=== PATIENT | male | born 1985 | race Caucasian/White ===

== ENCOUNTER 2019-04-09 10:19 | Inpatient (IN) | payer SELFPAY ==
[~2019-04-09] VITALS: Ht 180.3 cm; Wt 76.7 kg
[2019-04-09] MEDS ORDERED: HYDR-2966 PO (10:32)
[2019-04-09] MEDS ORDERED: ESCI5TAB10 PO (10:32)
[2019-04-09] MEDS ORDERED: NS(*) 0.9% 1000 ML BAG 1,000 ML IV ONE (10:55)
[2019-04-09] MEDS ORDERED: ONDANSETRON 4 MG/2 ML VIAL IVP ONE (10:55)
--- NOTE | 2019-04-09 11:05 | ER Report ---
History and Physical Time Seen By MD: 10:35 Hx. of Stated Complaint: pt states is an alcoholic, awoke this am had a shot, then vomited blood. States has not been able to eat for a week, very fatigued as well. Recently put on lexapro and hctz very recently HPI/ROS CHIEF COMPLAINT: Alcoholism, vomiting blood, foot swelling HISTORY OF PRESENT ILLNESS: 34-year-old male reports that he has been drinking heavily for at least the past 6 months but has history of significant alcohol intake in the past. States he was able to cut out alcohol successfully in 2013, but has since returned to significant alcohol intake. Reports that he drinks 10- 12 IPAs per day. Patient states that finances have been a big stressor and has triggered increased drinking. He reports depression is being treated for this but denies suicidal ideations. He reports that he noted bilateral lower extremity swelling around the ankles over the past couple days and is also noted that he is extremely nauseous whenever he attempts to eat or drink fluids or beer which is limited appetite, and intake to primarily beer. He drank a shot this morning and soon after vomited 2. He is concerned because at the end of the second vomit he noted blood. He is continually mildly nauseous though has not vomited in the past 3 hours. He notes some abdominal discomfort. He also notes chest tightness. States this is been ongoing for one day and he has been short of breath on exertion and noted increased fatigue. When asked, he admits that he has noted some change in I and skin color. Pt admits to MJ, denies other drug use REVIEW OF SYSTEMS: Constitutional: No fever, no chills. Eyes: yellow discoloration ENT: No sore throat. Dry mouth Cardiovascular: above Respiratory: No cough, no shortness of breath. Gastrointestinal: above Genitourinary: No hematuria. Musculoskeletal: No back pain. Skin: poor healing of rock climbing injuries Neurological: No headache. Remainder of the 14 system rev: Yes Allergies: Coded Allergies: No Known Drug Allergies (Unverified , 04/09/19) Home Meds Reported Medications Hydrochlorothiazide (HYDROCHLOROTHIAZIDE) 25 Mg Tablet, 1 TAB PO QDAY, TAB 04/09/19 Escitalopram Oxalate (LEXAPRO) 5 Mg Tablet, 5 MG PO QDAY 04/09/19 Reviewed Nurses Notes: Yes Hx Substance Use Disorder: Yes (pot) Hx Alcohol Use: Yes (6 pack daily, can't go 8 hours without a drink) Constitutional Vital Sign - Last 24 Hours 04/09/19 04/09/19 04/09/19 04/09/19 10:24 10:24 10:30 10:31 Temp 98.8 Pulse 117 Resp 20 B/P (MAP) 146/106 146/106 (119) 143/107 (119) Pulse Ox 89 O2 Delivery Room Air O2 Flow Rate 1.5 04/09/19 04/09/19 04/09/19 04/09/19 10:49 11:00 11:19 11:30 Pulse 104 100 Resp 15 10 B/P (MAP) 143/99 (114) 135/93 (107) Pulse Ox 95 93 04/09/19 04/09/19 11:49 12:00 Pulse 100 Resp 13 B/P (MAP) 136/88 (104) Pulse Ox 91 Physical Exam General Appearance: The patient is alert, has no immediate need for airway protection and no signs of toxicity. [ ] Eyes: Pupils equal and round, jaundiced ENT, Mouth: Mucous membranes dry, no jaundice noted under tongue Respiratory: There are no retractions, lungs are clear to auscultation. Cardiovascular: Tachycardia, no murmurs[ ] Gastrointestinal: Mild epigastric tenderness, no fluid or masses Neurological: Alert, oriented, no focal deficits Skin: Warm and dry, mildly jaundiced Musculoskeletal: Extremities are nontender, nonswollen and have full range of motion. DIFFERENTIAL DIAGNOSIS: After history and physical exam differential diagnosis was considered for liver failure, cholecystitis, renal failure, sepsis, alcohol withdrawal, drug toxicity or withdrawal, or other emergent etiology. Medical Decision Making Data Points Result Diagram: 04/09/19 1013 04/09/19 1013 Laboratory Hematology Test 04/09/19 00:00 04/09/19 10:13 Magnesium Level 1.9 mg/dl (1.7-2.2) Red Blood Count 4.98 M/uL (4.00-5.60) Mean Corpuscular Volume 95.1 fL (80.0-96.0) Mean Corpuscular Hemoglobin 34.1 pg (26.0-33.0) Mean Corpuscular Hemoglobin Concent 35.9 g/dL (32.0-36.0) Red Cell Distribution Width 14.8 % (11.5-14.5) Mean Platelet Volume 9.6 fL (7.2-11.1) Neutrophils (%) (Auto) % (39.4-72.5) Lymphocytes (%) (Auto) % (17.6-49.6) Monocytes (%) (Auto) % (4.1-12.4) Eosinophils (%) (Auto) % (0.4-6.7) Basophils (%) (Auto) % (0.3-1.4) Nucleated RBC Relative Count (auto) /100WBC Neutrophils # (Auto) K/uL (2.0-7.4) Lymphocytes # (Auto) K/uL (1.3-3.6) Monocytes # (Auto) K/uL (0.3-1.0) Eosinophils # (Auto) K/uL (0.0-0.5) Basophils # (Auto) K/uL (0.0-0.1) Nucleated RBC Absolute Count (auto) K/uL Neutrophils % (Manual) 54 % (39.4-72.5) Band Neutrophils % 2 % Lymphocytes % (Manual) 36 % (17.6-49.6) Monocytes % (Manual) 6 % (4.1-12.4) Eosinophils % (Manual) 0 % (0.4-6.7) Basophils % (Manual) 2 % (0.3-1.4) Target Cells 2+ Prothrombin Time 14.4 seconds (12.0-14.4) Prothromb Time International Ratio 1.12 Activated Partial Thromboplast Time 34 seconds (23-35) Urine Color Cindy Urine Clarity Clear Urine pH 7.0 pH (4.8-9.5) Urine Specific [place] 1.017 Urine Protein Negative mg/dL (NEGATIVE) Urine Glucose (UA) Negative mg/dL (NEGATIVE) Urine Ketones Trace mg/dL (NEGATIVE) Urine Blood Negative (NEGATIVE) Urine Nitrite Negative (NEGATIVE) Urine Bilirubin Small (NEGATIVE) Urine Urobilinogen 2.0 mg/dL (0.2-1.9) Urine Leukocyte Esterase Negative (NEGATIVE) Urine RBC 1 /HPF (0-2/HPF) Urine WBC 2 /HPF (0-5/HPF) Urine Squamous Epithelial Cells Few /LPF (</=FEW) Urine Bacteria Negative /HPF (NONE-FEW) Urine Mucus None /HPF (NONE-FEW) Sodium Level 134 mmol/L (137-145) Potassium Level 4.0 mmol/L (3.5-5.0) Chloride Level 98 mmol/L (98-107) Carbon Dioxide Level 23 mmol/L (22-30) Blood Urea Nitrogen 9 mg/dl (9-21) Creatinine 0.80 mg/dl (0.66-1.25) Glomerular Filtration Rate Calc > 60.0 Random Glucose 105 mg/dl (75-110) Calcium Level 7.3 mg/dl (8.4-10.2) Total Bilirubin 6.4 mg/dl (0.2-1.3) Aspartate Amino Transf (AST/SGOT) 923 U/L (0-35) Alanine Aminotransferase (ALT/SGPT) 323 U/L (0-56) Alkaline Phosphatase 272 U/L (0-126) Total Protein 5.6 g/dl (6.3-8.2) Albumin 2.8 g/dl (3.5-5.0) Lipase 583 U/L (23-300) Salicylates Level < 10 mg/L Salicylate Last Dose Date unk Urine Opiates Screen Negative Acetaminophen Level < 10 ug/ml Urine Barbiturates Screen Negative Ur Tricyclic Antidepressants Screen Negative Urine Phencyclidine Screen Negative Urine Amphetamines Screen Negative Urine Benzodiazepines Screen Negative Urine Cocaine Screen Negative Urine Cannabinoids Screen Negative Chemistry Test 04/09/19 00:00 04/09/19 10:13 Magnesium Level 1.9 mg/dl (1.7-2.2) White Blood Count 5.6 k/uL (4.5-11.0) Red Blood Count 4.98 M/uL (4.00-5.60) Hemoglobin 17.0 g/dL (14.0-18.0) Hematocrit 47.4 % (42.0-52.0) Mean Corpuscular Volume 95.1 fL (80.0-96.0) Mean Corpuscular Hemoglobin 34.1 pg (26.0-33.0) Mean Corpuscular Hemoglobin Concent 35.9 g/dL (32.0-36.0) Red Cell Distribution Width 14.8 % (11.5-14.5) Platelet Count 238 K/uL (150-450) Mean Platelet Volume 9.6 fL (7.2-11.1) Neutrophils (%) (Auto) % (39.4-72.5) Lymphocytes (%) (Auto) % (17.6-49.6) Monocytes (%) (Auto) % (4.1-12.4) Eosinophils (%) (Auto) % (0.4-6.7) Basophils (%) (Auto) % (0.3-1.4) Nucleated RBC Relative Count (auto) /100WBC Neutrophils # (Auto) K/uL (2.0-7.4) Lymphocytes # (Auto) K/uL (1.3-3.6) Monocytes # (Auto) K/uL (0.3-1.0) Eosinophils # (Auto) K/uL (0.0-0.5) Basophils # (Auto) K/uL (0.0-0.1) Nucleated RBC Absolute Count (auto) K/uL Neutrophils % (Manual) 54 % (39.4-72.5) Band Neutrophils % 2 % Lymphocytes % (Manual) 36 % (17.6-49.6) Monocytes % (Manual) 6 % (4.1-12.4) Eosinophils % (Manual) 0 % (0.4-6.7) Basophils % (Manual) 2 % (0.3-1.4) Target Cells 2+ Prothrombin Time 14.4 seconds (12.0-14.4) Prothromb Time International Ratio 1.12 Activated Partial Thromboplast Time 34 seconds (23-35) Urine Color Cindy Urine Clarity Clear Urine pH 7.0 pH (4.8-9.5) Urine Specific [place] 1.017 Urine Protein Negative mg/dL (NEGATIVE) Urine Glucose (UA) Negative mg/dL (NEGATIVE) Urine Ketones Trace mg/dL (NEGATIVE) Urine Blood Negative (NEGATIVE) Urine Nitrite Negative (NEGATIVE) Urine Bilirubin Small (NEGATIVE) Urine Urobilinogen 2.0 mg/dL (0.2-1.9) Urine Leukocyte Esterase Negative (NEGATIVE) Urine RBC 1 /HPF (0-2/HPF) Urine WBC 2 /HPF (0-5/HPF) Urine Squamous Epithelial Cells Few /LPF (</=FEW) Urine Bacteria Negative /HPF (NONE-FEW) Urine Mucus None /HPF (NONE-FEW) Glomerular Filtration Rate Calc > 60.0 Calcium Level 7.3 mg/dl (8.4-10.2) Total Bilirubin 6.4 mg/dl (0.2-1.3) Aspartate Amino Transf (AST/SGOT) 923 U/L (0-35) Alanine Aminotransferase (ALT/SGPT) 323 U/L (0-56) Alkaline Phosphatase 272 U/L (0-126) Total Protein 5.6 g/dl (6.3-8.2) Albumin 2.8 g/dl (3.5-5.0) Lipase 583 U/L (23-300) Salicylates Level < 10 mg/L Salicylate Last Dose Date unk Urine Opiates Screen Negative Acetaminophen Level < 10 ug/ml Urine Barbiturates Screen Negative Ur Tricyclic Antidepressants Screen Negative Urine Phencyclidine Screen Negative Urine Amphetamines Screen Negative Urine Benzodiazepines Screen Negative Urine Cocaine Screen Negative Urine Cannabinoids Screen Negative Coagulation Test 04/09/19 10:13 Prothrombin Time 14.4 seconds Prothromb Time International Ratio 1.12 Activated Partial Thromboplast Time 34 seconds Toxicology Test 04/09/19 10:13 Salicylates Level < 10 mg/L Salicylate Last Dose Date unk Urine Opiates Screen Negative Acetaminophen Level < 10 ug/ml Urine Barbiturates Screen Negative Ur Tricyclic Antidepressants Screen Negative Urine Phencyclidine Screen Negative Urine Amphetamines Screen Negative Urine Benzodiazepines Screen Negative Urine Cocaine Screen Negative Urine Cannabinoids Screen Negative Urinalysis Test 04/09/19 10:13 Urine Color Cindy Urine Clarity Clear Urine pH 7.0 pH (4.8-9.5) Urine Specific [place] 1.017 Urine Protein Negative mg/dL (NEGATIVE) Urine Glucose (UA) Negative mg/dL (NEGATIVE) Urine Ketones Trace mg/dL (NEGATIVE) Urine Blood Negative (NEGATIVE) Urine Nitrite Negative (NEGATIVE) Urine Bilirubin Small (NEGATIVE) Urine Urobilinogen 2.0 mg/dL (0.2-1.9) Urine Leukocyte Esterase Negative (NEGATIVE) Urine RBC 1 /HPF (0-2/HPF) Urine WBC 2 /HPF (0-5/HPF) Urine Squamous Epithelial Cells Few /LPF (</=FEW) Urine Bacteria Negative /HPF (NONE-FEW) Urine Mucus None /HPF (NONE-FEW) EKG/Imaging EKG Interpretation 12 lead EKG: Rhythm: normal sinus rhythm [place]: normal QRS: normal ST segments: flipped T III, aVF, No ST elevations Monitor Interpretation: Normal Sinus Rhythm ED Course/Re-evaluation ED Course 34 m alcoholic presents due to vomiting, unable to tolerate much po, vomiting with blood x 1 c/w jeferson thomas tear, and findings c/w alcoholic hepatitis and pancreatitis, poss early cirrhosis. Will admit for medical stabilization, bowel rest; pt amenable for detox. Considered cholecystitis but minimal ruq ttp, findings are very c/w pt's reported history. Pt remains hd stable in ED awaiting admission. Upon rpt evaluation, pt tolerates fluids. Repeat abd exam unchanged; epigastric ttp, ttp over liver, without e/o ascites/distension. Pt does relate 2 episodes of chest pressure over past 2 wks at this time; will add troponin to r/o acs. He also notes development of palpitations and remains borderline tachycardic despite ivf. Will initiate benzos for symptoms c/w withdrawal at this time. Decision to Disposition Date: April 09, 2019 Decision to Disposition Time: 12:43 Depart Departure Latest Vital Signs Vital Signs Date Time Temp Pulse Resp B/P (MAP) Pulse Ox O2 Delivery O2 Flow Rate FiO2 04/09/19 12:00 136/88 (104) 04/09/19 11:49 100 13 91 04/09/19 10:31 1.5 04/09/19 10:24 98.8 Room Air Impression: Primary Impression: Alcoholic hepatitis Additional Impression: Pancreatitis Condition: Condition Unchanged Disposition: Admitted from ER Problem Qualifiers Primary Impression: Alcoholic hepatitis Ascites presence: unspecified Qualified Codes: K70.10 - Alcoholic hepatitis without ascites Additional Impression: Pancreatitis Chronicity: acute Pancreatitis type: alcohol induced NAYANA RAMIREZ MD April 09, 2019 11:05
[2019-04-09 11:08] LABS: INR 1.12
[2019-04-09 11:09] LABS: PLATELET COUNT, AUTOMATED 238 K/uL (150-450)
--- NOTE | 2019-04-09 11:17 | EKG ---
[facility]AC[facility] PATIENT NAME: GLORIA AGUIRRE : [id number] MR: [id number]: [id number] EXAM DATE: ORDERING PHYSICIAN: NAYANA RAMIREZ TECHNOLOGIST: CRUZ Test Reason : ALCOHOL WITHDRAWL Blood Pressure : / mmHG Vent. Rate : 098 BPM Atrial Rate : 098 BPM P-R Int : 140 ms QRS Dur : 086 ms QT Int : 352 ms P-R-T Axes : -27 085 000 degrees QTc Int : 449 ms Normal sinus rhythm Normal ECG No previous ECGs available Confirmed by JAMEL JOSEPH ([id number]) on 04/09/2019 9:05:06 PM Referred By: JAMES Confirmed By:JAMEL JOSEPH
[2019-04-09] MEDS ORDERED: DIAZEPAM 50 MG/10 ML MDV IVP ONE (13:15)
[2019-04-09 14:16] VITALS: BP 143/103
[2019-04-09] MEDS ORDERED: NS(*) 0.9% 1000 ML BAG 1,000 ML IV PRN (14:45)
[2019-04-09] MEDS ORDERED: PROMETHAZINE 25 MG/ML 1 ML AMP IVP PRN (14:45)
[2019-04-09] MEDS ORDERED: DIAZEPAM 10 MG TAB PO PRN (14:45)
--- NOTE | 2019-04-09 15:05 | History & Physical ---
History of Present Illness Chief Complaint Alcoholism, vomiting blood History of Present Illness 34-year-old male reported to the emergency department with complaints of vomiting blood after having a shot this morning. He reports that he has been drinking heavily for at least the past 6 months and has history of significant alcohol intake in the past. States he was able to cut out alcohol successfully in 2013, but has since returned to significant alcohol intake. Reports that he drinks 10-12 IPAs per day. Patient states that finances have been a big stressor and has triggered increased drinking. He reports depression is being treated for this but denies suicidal ideations. He reports that he noted bilateral lower extremity swelling around the ankles over the past couple days and is also noted that he is extremely nauseous whenever he attempts to eat or drink fluids or beer which is limited appetite, and intake to primarily beer. He drank a shot this morning and soon after vomited 2. He is concerned because at the end of the second vomit he noted blood. He is continually mildly nauseous though has not vomited in the past 3 hours. He notes some abdominal discomfort. He also notes chest tightness. States this is been ongoing for one day and he has been short of breath on exertion and noted increased fatigue. When asked, he admits that he has noted some change in I and skin color. Pt admits to using occasional marijuana, but denies other drug use. He was recommended for admission for alcoholic hepatitis and pancreatitis. History Problems: (1) Depression Status: Chronic (2) Hypertension Status: Chronic Home Meds Reported Medications Hydrochlorothiazide (HYDROCHLOROTHIAZIDE) 25 Mg Tablet, 1 TAB PO QDAY, TAB 04/09/19 Escitalopram Oxalate (LEXAPRO) 5 Mg Tablet, 5 MG PO QDAY 04/09/19 Allergies: Coded Allergies: No Known Drug Allergies (Unverified , 04/09/19) Hx Alcohol Use: Yes (6 pack daily, can't go 8 hours without a drink) Review of Systems All Systems Reviewed/Normal: Yes, Except as Noted Gastrointestinal: Nausea, Vomiting, Abdominal Pain Exam Vital Signs Vital Signs Date Time Temp Pulse Resp B/P (MAP) Pulse Ox O2 Delivery O2 Flow Rate FiO2 04/09/19 13:35 102 14 91 04/09/19 13:30 125/85 (98) 04/09/19 10:31 1.5 04/09/19 10:24 98.8 Room Air General Appearance: Alert, Awake, No Acute Distress, Afebrile Neuro: No Gross deficits Cardiovascular: Regular Rate and Rhythm Respiratory: No Respiratory Distress, Clear to Auscultation GI: Other (epigastric pain to palpation) Extremities: Edema (non pitting edema to lower extremities) Integumentary: Jaundice Psych: Alert & Oriented X3, Appropriate Mood & Affect Medical Decision Making Data Points Result Diagram: 04/09/19 1013 04/09/19 1013 Item Value Date Time Lipase 583 U/L H 04/09/19 1013 Assessment and Plan Problems: (1) Alcoholic hepatitis Status: Acute Assessment & Plan: He presented with elevated liver enzymes and mild jaundice. He reports drinking 12 IPA beers daily. He will be placed on CIWA assessments, seizure precautions, telemetry and Valium as needed for withdraw. (2) Pancreatitis Status: Acute Assessment & Plan: He had two episodes of vomiting with epigastric pain. Lipase was noted to be 583 upon admission. He will receive IV hydration, clear liquid d iet overnight and IV antiemetics as needed. (3) Depression Status: Chronic Assessment & Plan: He was started on Lexapro two days ago by his PCP. He does not want to continue this medication at this time because it gave him "wandering thoughts". Patient denies suicidal thoughts, he felt he could not focus. (4) Hypertension Status: Chronic Assessment & Plan: He was started on Hydrochlorothiazide two days prior to admission. Will hold medication for now, continue to watch BP's. Venous Thromboembolism Antithrombotics Is Pt On Any Antithrombotics?: No Exam Sepsis Risk: No Definite Risk Problem Qualifiers (1) Alcoholic hepatitis: Ascites presence: unspecified Qualified Codes: K70.10 - Alcoholic hepatitis without ascites (2) Pancreatitis: Chronicity: acute Pancreatitis type: alcohol induced (3) Hypertension: Hypertension type: essential hypertension Qualified Codes: I10 - Essential (primary) hypertension TATYANA GUILLERMO April 09, 2019 15:05
[2019-04-09 17:43] VITALS: BP 146/93
[2019-04-09] MEDS: DIAZEPAM 10 MG TAB PO PRN (17:51)
[2019-04-09 18:48] VITALS: BP 138/96
[2019-04-09 19:29] VITALS: BP 134/90
[2019-04-09 21:50] VITALS: BP 147/99
[2019-04-09] MEDS: oxyCODON/ACET (*)5/325MG (CII) 1 TAB TAB PO PRN (23:01)
[2019-04-10] VITALS (7 sets, daily range): BP systolic 128–153; BP diastolic 88–100
[2019-04-10 06:04] LABS: PLATELET COUNT, AUTOMATED 157 K/uL (150-450)
[2019-04-10] MEDS: DIAZEPAM 10 MG TAB PO PRN (06:09)
[2019-04-10] MEDS: oxyCODON/ACET (*)5/325MG (CII) 1 TAB TAB PO PRN (07:27)
[2019-04-10] MEDS ORDERED: oxyCODONE HCL 5 MG CAP PO PRN (08:40)
[2019-04-10] MEDS: FOLIC ACID 1 MG TAB PO SCH (09:28)
[2019-04-10] MEDS: THIAMINE HCL 100 MG TAB PO SCH (09:28)
--- NOTE | 2019-04-10 09:46 | Medical Nutrition Therapy ---
Nutrition Anthropometrics Height (Inches): 71.00 Height (Calculated Centimeters: 180.817022 Weight (Pounds): 169 Weight (Calculated Kilograms): 76.657 BMI: 23.6 Denny Nutrition Score: Adequate Denny Nutrition Risk Score: 21 Dietary Referral Nutrition Risk Factors: Nutrition Risk Comment: Nutrition/Food History Alcohol Use: Currently Amount of Alcohol Used: 12 pkg beer/day Nutritional Diagnosis Nutritional Risk Acuity 2: Pancreatitis Nutritional Risk Acuity 3: Nausea, Alcohol abuse, Hepatitis Nutritional Acuity: 2-Moderate Nutrition Diagnosis: Excessive Alcohol Intake Nutrition Etiology: Alcohol Addiction Nutrition Problem/Etiology/Sym: AEB pt reporting 12 pk beer/day intake Energy Requirement: 2250 (MSJ) Protein Requirement: 84 (1.1gm/kg) Fluid Requirement: 2250 (1ml/kcal) Diet Type: Clear Liquids Nutrition Intervention: Incr diet as tolerated Additional Diet Restrictions: OFFER CLEAR LIQUID NUTR SUPPLMENTS WHILE ON CLEARS Nutrition Monitoring & Eval RD Patient Assessment Time: [address] Assessment Type: RD Assessment Patient Nutrition Acuity: 2-Moderate Follow Up Date: April 14, 2019 Nutritional Comment: 04/10 Pt admitted for pancreatis and alcoholic hepititis. Pt reports 12 pk beer /day intake. Pt on clear liquid diet. No intake reported at this time. Will offer clear liquid nutr supplment while on clears to provide additional protein. Alb depleted at 2.4. Elevated labs include lipase 583, AST 881, ALT 324. Pt is recieving thiamin and folic acid. Will cont to monitor and encourage intake. ABHI PENA April 10, 2019 09:46
--- NOTE | 2019-04-10 11:01 | Hospitalist Progress Note ---
Subjective Progress Notes Subjective He was admitted for alcohol detox. He had no acute events overnight. Patient Complains of: Cardiovascular: No: Chest Pain Respiratory: No: Shortness of Breath Physical Exam Vital Signs Date Time Temp Pulse Resp B/P (MAP) Pulse Ox O2 Delivery O2 Flow Rate FiO2 04/10/19 07:54 95 Room Air 1.5 04/10/19 07:15 99.2 90 12 128/88 (101) Intake and Output 04/10/19 07:00 Intake Total 1400 ml Balance 1400 ml Intake Oral 400 ml IV Total 1000 ml # Voids 1 General Appearance: Alert, Awake, No Acute Distress, Afebrile Neuro: Other (mild tremor noted at rest) Cardiovascular: Regular Rate and Rhythm Respiratory: No Respiratory Distress, Clear to Auscultation GI: Soft and Non-Tender Psych: Alert & Oriented X3, Appropriate Mood & Affect Result Diagram: 04/10/1937 04/10/19536 Monitor Interpretation: Normal Sinus Rhythm Assessment and Plan Problems: (1) Alcoholic hepatitis Status: Acute Assessment & Plan: He presented with elevated liver enzymes and mild jaundice. He reports drinking 12 IPA beers daily. He will be placed on CIWA assessments, seizure precautions, telemetry and Valium as needed for withdraw. Will have S give patient references for outpatient. (2) Pancreatitis Status: Acute Assessment & Plan: He had two episodes of vomiting with epigastric pain. Lipase was noted to be 583 upon admission. He received IV hydration, clear liquid diet overnight and IV antiemetics as needed. He is improving in abdominal pain, will advance to low fat diet today. (3) Depression Status: Chronic Assessment & Plan: He was started on Lexapro two days ago by his PCP. He does not want to continue this medication at this time because it gave him "wandering thoughts". Patient denies suicidal thoughts, he felt he could not focus. He will follow up as an outpatient. (4) Hypertension Status: Chronic Assessment & Plan: He was started on Hydrochlorothiazide two days prior to admission. Will hold medication for now, continue to watch BP's. Exam Sepsis Risk: No Definite Risk Problem Qualifiers (1) Alcoholic hepatitis: Ascites presence: unspecified Qualified Codes: K70.10 - Alcoholic hepatitis without ascites (2) Pancreatitis: Chronicity: acute Pancreatitis type: alcohol induced (3) Hypertension: Hypertension type: essential hypertension Qualified Codes: I10 - Essential (primary) hypertension TATYANA GUILLERMO April 10, 2019 11:01
[2019-04-11 04:16] VITALS: BP 129/86
[2019-04-11 05:59] LABS: PLATELET COUNT, AUTOMATED 120 K/uL (150-450)
[2019-04-11 06:57] VITALS: BP 158/103
[2019-04-11] MEDS: FOLIC ACID 1 MG TAB PO SCH (08:15)
[2019-04-11] MEDS: THIAMINE HCL 100 MG TAB PO SCH (08:15)
[2019-04-11 10:20] VITALS: BP 151/104
[2019-04-11] MEDS: DIAZEPAM 10 MG TAB PO PRN (10:24)
[2019-04-11 12:58] VITALS: BP 156/93
[2019-04-11 14:22] VITALS: BP 143/99
--- NOTE | 2019-04-11 17:51 | RADIOLOGY IMAGING REPORT ---
FACILITY: [facility] [place] PATIENT NAME: Ky Rodgers : 1985 MR: [id number] V: [id number] EXAM DATE: ORDERING PHYSICIAN: ALEXANDREA BARBOSA [place]CHN[place] [facility] [place] : 1985 Visit/Account:[id number] Date of Sevice: 04/11/2019 GALLBLADDER HISTORY: elevated total bilirubin, alk phos, and lipase GALLBLADDER EXAMINATION: Abdominal ultrasound limited Additional Pertinent history: Elevated liver enzymes and lipase COMPARISON STUDIES: none FINDINGS: Gallbladder: There are no gallstones. The wall does not appear to be thickened beyond the 3 mm. There is a anechoic para cholecystic fluid outlining the gallbladder wall. No obstructive changes are note d. Negative Hickman sign Liver: Heterogenous liver consistent with fatty infiltrative change. No dilated intrahepatic ducts no richardson Common duct: normal. Maximal size is 4.0 mm. Pancreas: Visualized pancreas is grossly normal with no obvious pancreatic mass or evidence of obviou s pancreatic edema. Right Kidney: 11.4 x 5.7 x 6.3 centers. No hydronephrosis. No cortical mass lesions Upper abdominal aorta and IVC: negative Ascites: none IMPRESSION: 1. Pericholecystic fluid collections likely related to hepatitis or possibly pancreatitis considering elevated lipase although the pancreas on this ultrasound does not appear to be grossly abnormal. Report Dictated By: Kimo Dunlap MD at 04/11/2019 5:06 PM Report E-Signed By: Kimo Dunlap MD at 04/11/2019 5:46 PM WSN:[id number]
--- NOTE | 2019-04-11 18:11 | Hospitalist Depart ---
Discharge Summary Reason for Hosp/Final Diag: (1) Alcoholic hepatitis Status: Acute Hospital Course & Plan: He presented with having nausea and vomiting for a week with some LE edema. He had very elevated liver enzymes and total bilirubin. He reports drinking 12 IPA beers daily. The total bilirubin has gone up and the AST/ALT have gone down slightly. GB US didn't show ductal dilatation or obstruction of the common bile duct. He feels well and wants to go home. He is knows where he is, why he is here and date/time. He is moving and eating well. He doesn't meet criteria for steroids for alcohol hepatitis. INR is wnl. He had only mild alcohol withdrawal symptoms. He received only 40mg of diazepam during the entire admission. He was informed that he might not be through the withdrawal and it might worsen. He will go home with close follow up. He needs to get a CMP in 3 days and follow up with his PCP in 1-2 weeks. He has been told to have a low threshold for going back to the ER. Also, he knows that he cannot drink alcohol or take acetaminophen. (2) Pancreatitis Status: Acute Hospital Course & Plan: He had two episodes of vomiting with epigastric pain. Lipase was noted to be 583 upon admission and is now down to 381. He is tolerating a low fat diet and has a soft, non-tender abdomen. (3) Depression Status: Chronic Hospital Course & Plan: He was started on Lexapro two days prior to admission by his PCP. He does not want to continue this medication at this time because it gave him "wandering thoughts". Patient denies suicidal thoughts, he felt he cou ld not focus. He will follow up as an outpatient. (4) Hypertension Status: Chronic Hospital Course & Plan: He was started on Hydrochlorothiazide two days prior to admission. He can restart it as an outpatient. He will follow up with his PCP. Departure Weight (Pounds): 169 Result Diagram: 04/11/1938 04/11/19 0538 Item Value Date Time Neutrophils % (Manual) 54 % 04/09/19 1013 Band Neutrophils % 2 % 04/09/19 1013 Lymphocytes % (Manual) 36 % 04/09/19 1013 Monocytes % (Manual) 6 % 04/09/19 1013 Neutrophils (%) (Auto) 8.4 % L 04/10/19 0537 Lymphocytes (%) (Auto) 61.9 % H 04/11/19 0538 Neutrophils (%) (Auto) 20.1 % L 04/11/19 0538 Lymphocytes (%) (Auto) 74.6 % H 04/10/19 0537 Monocytes (%) (Auto) 15.6 % H 04/10/19 0537 Monocytes (%) (Auto) 12.8 % H 04/11/19 0538 Mean Corpuscular Volume 95.1 fL 04/09/19 1013 Mean Corpuscular Volume 93.4 fL 04/10/19 0537 Mean Corpuscular Volume 93.0 fL 04/11/19 0538 Platelet Count 120 K/uL L 04/11/19 0538 Platelet Count 157 K/uL 04/10/19 0537 Platelet Count 238 K/uL 04/09/19 1013 Prothromb Time International Ratio 1.12 04/09/19 1013 Magnesium Level 1.9 mg/dl 04/09/19 0000 Total Bilirubin 6.4 mg/dl H 04/09/19 1013 Aspartate Amino Transf (AST/SGOT) 923 U/L H 04/09/19 1013 Alanine Aminotransferase (ALT/SGPT) 323 U/L H 04/09/19 1013 Alkaline Phosphatase 272 U/L H 04/09/19 1013 Total Protein 5.6 g/dl L 04/09/19 1013 Albumin 2.8 g/dl L 04/09/19 1013 Lipase 583 U/L H 04/09/19 1013 Urine Opiates Screen Negative 04/09/19 1013 Urine Barbiturates Screen Negative 04/09/19 1013 Ur Tricyclic Antidepressants Screen Negative 04/09/19 1013 Urine Phencyclidine Screen Negative 04/09/19 1013 Urine Amphetamines Screen Negative 04/09/19 1013 Urine Cannabinoids Screen Negative 04/09/19 1013 Urine Cocaine Screen Negative 04/09/19 1013 Urine Benzodiazepines Screen Negative 04/09/19 1013 Salicylates Level < 10 mg/L 04/09/19 1013 Acetaminophen Level < 10 ug/ml 04/09/19 1013 Urine Ketones Trace mg/dL 04/09/19 1013 Urine Bilirubin Small 04/09/19 1013 Urine Urobilinogen 2.0 mg/dL 04/09/19 1013 Urine Leukocyte Esterase Negative 04/09/19 1013 Urine WBC 2 /HPF 04/09/19 1013 Urine RBC 1 /HPF 04/09/19 1013 Urine Squamous Epithelial Cells Few /LPF 04/09/19 1013 Imaging Gallbladder US - 1. Pericholecystic fluid collections likely related to hepatitis or possibly pancreatitis considering elevated lipase although the pancreas on this ultrasound does not appear to be grossly abnormal. EKG Vent. Rate : 098 BPM Atrial Rate : 098 BPM P-R Int : 140 ms QRS Dur : 086 ms QT Int : 352 ms P-R-T Axes : -27 085 000 degrees QTc Int : 449 ms Normal sinus rhythm Normal ECG No previous ECGs available Confirmed by JAMEL JOSEPH ([id number]) on 04/09/2019 9:05:06 PM Condition: Improved Discharge: Home Discharge Instructions Home Meds Reported Medications Hydrochlorothiazide (HYDROCHLOROTHIAZIDE) 25 Mg Tablet, 0.5 TAB PO QDAY, TAB 04/09/19 Discontinued Reported Medications Escitalopram Oxalate (LEXAPRO) 5 Mg Tablet, 5 MG PO QDAY 04/09/19 Diet: Low Fat Activity: As Tolerated Special Instructions: No acetaminophen (aka Tylenol) until cleared by PCP Follow up with PCP in 1-2 weeks CMP on 04/14 Go to the ER for fevers, chills, worsening abdominal pain, nausea, vomiting, abdominal distension. Do not drink alcohol. Follow up with outpatient counseling for alcohol use per the recommendations from the [facility] counselor Copies to: WINTER [facility]AUGHN ; Venous Thromboembolism Antithrombotics Is Pt On Any Antithrombotics?: No Problem Qualifiers (1) Alcoholic hepatitis: Ascites presence: unspecified Qualified Codes: K70.10 - Alcoholic hepatitis without ascites (2) Pancreatitis: Chronicity: acute Pancreatitis type: alcohol induced (3) Hypertension: Hypertension type: essential hypertension Qualified Codes: I10 - Essential (primary) hypertension ALEXANDREA BARBOSA MD April 11, 2019 18:11
== END 2019-04-11 18:30 | disposition home or self-care (01) | DRG 432 ==
LOC: ER 10:29 → MED 13:29
PROVIDERS: ADMIT Family Medicine; ATTEND Family Medicine
DX: K70.10 Alcoholic hepatitis without ascites (principal); K85.20 Alcohol induced acute pancreatitis without necrosis or infection; F10.230 Alcohol dependence with withdrawal, uncomplicated; K92.0 Hematemesis; I10 Essential (primary) hypertension; F32.9 Major depressive disorder, single episode, unspecified; Z73.3 Stress, not elsewhere classified; Z59.9 Problem related to housing and economic circumstances, unspecified
CPT/HCPCS: 36415; 76705; 80305; 80329; 81001; 82040; 82247; 82310; 82374; 82435; 82565; 82947; 83690; 83735; 84075; 84132; 84155; 84295; 84443; 84450; 84460; 84484; 84520; 85025; 85610; 85730; 93005; 96361; 96374; 96375; 99284; J2405; J3360; J7030